=== PATIENT | male | born 1970 | race Caucasian/White ===

== ENCOUNTER 2016-07-09 17:13 | Emergency (ER) | payer BC ==
[2016-07-09 17:17] VITALS: BP 139/79
--- NOTE | 2016-07-09 17:23 | ER Document Report ---
ED Medical Screen (RME) - General Stated Complaint: LEFT INDEX FINGER LACERATION Notes: Patient is a 46-year-old male presents emergency Department with a left index finger laceration. 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 Lac is located on the dorsal part of the left hand over the knuckle. Patient has sensation and motor function intact. Minimal bleeding. This is up-to-date, last vaccine 2 years ago. I have greeted and performed a rapid initial assessment of this patient. A comprehensive ED assessment and evaluation of the patient, analysis of test results and completion of the medical decision making process will be conducted by additional ED providers. TRAVEL OUTSIDE OF THE [place] IN LAST 30 DAYS: No - Related Data Allergies/Adverse Reactions: No Known Allergies Allergy (Verified 07/09/16 17:19) Past Medical History - Social History Family history: CAD, DM, Hyperlipidemia, Hypertension, Malignancy - Immunizations Immunizations up to date: Yes Hx Diphtheria, Pertussis, Tetanus Vaccination: Yes Physical Exam - Vital signs Vitals: Temp Pulse Resp BP Pulse Ox 98.3 F 86 16 139/79 H 96 07/09/16 17:16 07/09/16 17:16 07/09/16 17:16 07/09/16 17:16 07/09/16 17:16 Course - Vital Signs Vital signs: Temp Pulse Resp BP Pulse Ox 98.3 F 86 16 139/79 H 96 07/09/16 17:16 07/09/16 17:16 07/09/16 17:16 07/09/16 17:16 07/09/16 17:16
[2016-07-09] MEDS ORDERED: LIDOCAINE 1% INJ-PF (10 MG/ML) 30 ML SDV INJ ONE (18:21)
--- NOTE | 2016-07-09 18:31 | ER Document Report ---
ED General - General Chief Complaint: Laceration Stated Complaint: LEFT INDEX FINGER LACERATION Mode of Arrival: Ambulatory Information source: Patient Notes: Patient presents with laceration to his left index finger. He reports he was at work at [employer] and cut his finger with a knife. Patient has full range of motion no active bleeding. Reports tetanus is up-to-date. Reports he took a ultram prior to arrival. Drove himself here. His left hand dominant TRAVEL OUTSIDE OF THE [place] 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 History: Reviewed & Not Pertinent Patient has suicidal ideation: No Patient has homicidal ideation: No - Medical History Medical History: Negative Renal/ Medical History: Denies: Hx Peritoneal Dialysis Surgical Hx: Negative - Immunizations Immunizations up to date: Yes Hx Diphtheria, Pertussis, Tetanus Vaccination: Yes - reports tetanus up to date Review of Systems - Review of Systems Notes: Review HPI for review of systems., All other systems negative Physical Exam - Vital signs Vitals: Temp Pulse Resp BP Pulse Ox 98.3 F 86 16 139/79 H 96 07/09/16 17:16 07/09/16 17:16 07/09/16 17:16 07/09/16 17:16 07/09/16 17:16 - Notes Notes: PHYSICAL EXAMINATION: GENERAL: Well-appearing and in no acute distress c/o finger pain HEAD: Atraumatic, normocephalic. EYES: Pupils equal round extraocular movements intact, sclera anicteric, conjunctiva are normal. ENT: nares patent, . Moist mucous membranes. NECK: Normal range of motion, supple LUNGS: RR even/unlabored, no distress, no coughing HEART: Regular rate ABDOMEN: Soft, no tenderness. No guarding, no rebound EXTREMITIES: Normal range of motion NEUROLOGICAL: Cranial nerves grossly intact. Normal sensory/motor exams. PSYCH: Normal mood, normal affect. SKIN: Warm, Dry, normal turgor - Extremities Hand: Tender, Laceration - 3cm linear laceration to left index finger at MCP, pt flexing/extending finger without c/o, tendon noted with movement, no obvious laceration to tendon upon first assessment. - Skin Skin Temperature: Warm Skin Moisture: Dry Skin irregularity: Laceration Location of irregularity: Other - left index finger Character of irregularity: Linear Course - Re-evaluation Re-evalutation: 07/09/16 19:12 Pt and his were instructed on the importance of follow-up with Dr. Bender , hand specialist for evaluation. He was instructed on medications, s/s infection - Vital Signs Vital signs: Temp Pulse Resp BP Pulse Ox 98.3 F 86 16 139/79 H 96 07/09/16 17:16 07/09/16 17:16 07/09/16 17:16 07/09/16 17:16 07/09/16 17:16 Procedures - Immobilization Left 2nd digit Immobilizer type: Finger splint (Static) Performed by: PCT Post-Proc Neuro Vasc Exam: Unchanged from pre-exam - Laceration/Wound Repair Left 2nd digit Wound length (cm): 3 Wound's Depth, Shape: Linear Laceration pre-procedure: Shur-Clens applied Anesthetic type: 1% Lidocaine Volume Anesthetic (mLs): 5 Wound explored: Clean Irrigated w/ Saline (mLs): 1,000 Wound Repaired With: Sutures Suture Size/Type: 5:0, Nylon Number of Sutures: 8 Layer Closure?: No Post-procedure wound care: Sterile dressing applied, Splint applied Post-procedure NV exam normal: Yes Complications: No Hands back picture: 1 - 3 cm laceration linear. cleaned well, opened up to explore tendon, tendon explored with pt finger flexed and extended, no laceration noted, FROM, brisk cap refill Discharge - Discharge Clinical Impression: Elevated blood pressure reading Finger laceration Qualifiers: Encounter type: initial encounter Qualified Code(s): S61.219A - Laceration without foreign body of unspecified finger without damage to nail, initial encounter Condition: Stable Disposition: HOME, SELF-CARE Instructions: Cephalexin ([facility]), Laceration Care ([facility]), Oral Narcotic Medication ([facility]), Prophylactic Antibiotic ([facility]), Soap Cleansing ([facility]), Splint Precautions ([facility]) Additional Instructions: *You have been treated for a finger laceration, elevated blood pressure reading *Take medication as prescribed *Monitor the site for signs of infection such as increasing pain,redness, swelling, warmth *Keep the finger clean, wear the splint *Follow up with a orthopedic within one week *Return to ED for signs of infection, worsening condition, changes, needs Monitor your blood pressure. Your blood pressure was elevated today. This may be because you were anxious, in pain or because you need medication. It is important to follow up with your primary care provider for full evaluation. Prescriptions: Cephalexin Monohydrate [Keflex 500 mg Capsule] 500 mg PO QID #20 capsule Oxycodone HCl/Acetaminophen [Percocet 5-325 mg Tablet] 1 - 2 tab PO ASDIR PRN # 15 tablet PRN Reason: Forms: Elevated Blood Pressure, Return to Work Referrals: ADELINE BENDER DO [ACTIVE STAFF] - Follow up in 3-5 days
== END 2016-07-09 19:34 | disposition home or self-care (01) ==
LOC: ER 17:13
PROC: 0HQGXZZ Repair Left Hand Skin, External Approach (ICD-10-PCS; principal; 2016-07-09)
DX: S61.211A Laceration without foreign body of left index finger without damage to nail, initial encounter (principal); W26.0XXA Contact with knife, initial encounter; Y99.0 Civilian activity done for income or pay
CPT/HCPCS: 99282; 12002; J3490